=== PATIENT | female | born 1960 | race Caucasian/White ===

== ENCOUNTER 2019-10-14 07:10 | Day surgery (SDC) | payer BC ==
[2019-10-14] MEDS: Polymyxin B/Trimethoprim 10 ML Bottle EYELF SCH ×4 (07:29→09:12)
[2019-10-14] MEDS: Brimonidine 0.2% Ophth Soln 5 ML Bottle EYELF SCH ×4 (07:34→09:12)
[2019-10-14] MEDS: Phenylephrine 2.5% Ophth Soln 2 ML Bot EYELF SCH ×6 (07:39→08:50)
[2019-10-14] MEDS: Tropicamide 1% Ophth Soln 15 ML Bottle EYELF SCH ×4 (07:44→08:29)
--- NOTE | 2019-10-14 07:48 | PCM.PREANE ---
Preanesthetic Assessment - Procedure Proposed Procedure: left eye cataract - Anesthesia/Transfusion/Family Hx Anesthesia History: Prior Anesthesia Reaction Type of Anesthesia Reaction: Excessive Nausea/Vomiting Family History of Anesthesia Reaction: No Transfusion History: Prior Transfusion Without Reaction Intubation History: Unknown - Review of Systems General: No Symptoms Pulmonary: No Symptoms Cardiovascular: No Symptoms Gastrointestinal: No Symptoms Neurological: No Symptoms Other: Reports: None - Physical Assessment NPO Status Date: 10/13/19 NPO Status Time: 23:00 Vital Signs: Last Vital Signs Temp 36.3 C 10/14/19 07:15 Pulse 61 10/14/19 07:15 Resp 16 10/14/19 07:15 BP 136/86 10/14/19 07:15 Pulse Ox 94 L 10/14/19 07:15 Height: 1.63 m Weight: 65.771 kg ASA Class: 2 Mental Status: Alert & Oriented x3 Airway Class: Mallampati = 1 Dentition: Reports: Normal Dentition Thyro-Mental Finger Breadths: 3 Mouth Opening Finger Breadths: 5 ROM/Head Extension: Full Lungs: Clear to Auscultation, Normal Respiratory Effort Cardiovascular: Regular Rate, Regular Rhythm - Allergies Allergies/Adverse Reactions: Allergies Allergy/AdvReac Type Severity Reaction Status Date / Time No Known Allergies Allergy Verified 10/13/19 10:09 - Blood Blood Available: No - Acknowledgements Anesthesia Type Planned: MAC Pt an Appropriate Candidate for the Planned Anesthesia: Yes Alternatives and Risks of Anesthesia Discussed w Pt/Guardian: Yes Pt/Guardian Understands and Agrees with Anesthesia Plan: Yes PreAnesthesia Questionnaire - HOME MEDS Home Medications: Home Meds . [No Known Home Meds] 10/13/19 [History] - CURRENT (IN HOUSE) MEDS Current Meds: Current Medications Brimonidine Tartrate (Alphagan 0.2% Ophth Soln) 0 ml EYELF ASDIRECTED SARAH Stop: 10/14/19 23:00 Last Admin: 10/14/19 07:34 Dose: 1 drop Cefuroxime Sodium (Zinacef) 0 mg EYELF ASDIRECTED SARAH Stop: 10/14/19 23:00 Lidocaine HCl (Xylocaine-Mpf 1%) 1 ml INJECT ASDIRECTED SARAH Stop: 10/14/19 23:00 Phenylephrine HCl (Chetan-Synephrine 2.5% Ophth Soln) 0 ml EYELF ASDIRECTED SARAH Stop: 10/14/19 23:00 Last Admin: 10/14/19 07:39 Dose: 1 drop Pilocarpine HCl (Pilocar 4% Ophth Soln) 0 ml EYELF ASDIRECTED SARAH Stop: 10/14/19 23:00 Polymyxin/Trimethoprim Sulfate (Polytrim Ophth Soln) 0 ml EYELF ASDIRECTED SARAH Stop: 10/14/19 23:00 Last Admin: 10/14/19 07:29 Dose: 1 drop Tetracaine HCl (Tetracaine 0.5% Steri-Unit Archel) 0 ml EYEBOTH ASDIRECTED SARAH Stop: 10/14/19 23:00 Tropicamide (Mydriacyl 1% Ophth Soln) 0 ml EYELF ASDIRECTED SARAH Stop: 10/14/19 23:00 Last Admin: 10/14/19 07:44 Dose: 1 drop
[2019-10-14] MEDS: Cefuroxime 10 MG/ML SYRINGE EYELF SCH ×2 (07:50→09:11)
[2019-10-14] MEDS: Lidocaine 1% PF 2 ML SDV INJECT SCH ×2 (07:50→08:59)
[2019-10-14] MEDS: Tetracaine HCl/PF 0.5% 4 ML Bottle EYEBOTH SCH ×5 (07:50→08:58)
[2019-10-14] MEDS: Pilocarpine 4% Ophth Soln 15 ML Bot EYELF SCH ×2 (07:51→09:12)
[2019-10-14] MEDS ORDERED: LORazepam 0.5 MG Tab PO ONE (07:52)
--- NOTE | 2019-10-14 09:15 | PCM48HPAN ---
Post Anesthesia Note - EVALUATION WITHIN 48HRS OF ANESTHETIC Vital Signs in Normal Range: Yes Patient Participated in Evaluation: Yes Respiratory Function Stable: Yes Airway Patent: Yes Cardiovascular Function Stable: Yes Hydration Status Stable: Yes Pain Control Satisfactory: Yes Nausea and Vomiting Control Satisfactory: Yes Mental Status Recovered: Yes Vital Signs: Last Vital Signs Temp 36.3 C 10/14/19 07:15 Pulse 61 10/14/19 07:15 Resp 16 10/14/19 07:15 BP 136/86 10/14/19 07:15 Pulse Ox 94 L 10/14/19 07:15
== END 2019-10-14 09:25 | disposition home or self-care (01) ==
LOC: JD.SDS 07:10
PROVIDERS: ATTEND Ophthalmology
DX: H25.813 Combined forms of age-related cataract, bilateral (principal); H43.813 Vitreous degeneration, bilateral; H16.223 Keratoconjunctivitis sicca, not specified as Sjogren's, bilateral; H16.103 Unspecified superficial keratitis, bilateral
CPT/HCPCS: A9270-GY; J0697; J2001; V2632